=== PATIENT | female | born 1985 | race Two or more races ===

== ENCOUNTER 2017-11-02 08:24 | Outpatient (CLI) | payer OTHER ==
[~2017-11-02] VITALS: Ht 157.5 cm; Wt 60.8 kg
[~2017-11-02 08:24] MED LIST: ANTICONCEPTIVOS; OSEL75CA PO
== END 2017-11-02 08:45 | disposition home or self-care (01) ==
LOC: OFIC 805 08:24
DX: J30.89 Other allergic rhinitis (principal); R09.81 Nasal congestion

== ENCOUNTER 2018-08-20 09:24 | Outpatient (CLI) | payer OTHER ==
[~2018-08-20] VITALS: Ht 152.4 cm; Wt 63.5 kg
== END 2018-08-20 09:45 | disposition home or self-care (01) ==
LOC: OFIC 805 09:24
DX: J30.89 Other allergic rhinitis (principal); R09.81 Nasal congestion; R07.0 Pain in throat

== ENCOUNTER 2018-08-20 11:12 | Outpatient (CLI) | payer OTHER | END 2018-08-20 11:19 | disposition home or self-care (01) | LOC: LAB 11:12 | DX: J03.80 Acute tonsillitis due to other specified organisms (principal) ==

== ENCOUNTER 2018-10-04 09:51 | Outpatient (CLI) | payer OTHER ==
[~2018-10-04] VITALS: Ht 152.4 cm; Wt 63.5 kg
== END 2018-10-04 10:10 | disposition home or self-care (01) ==
LOC: OFIC 805 09:51
DX: J35.01 Chronic tonsillitis (principal)

== ENCOUNTER 2018-11-20 10:23 | Emergency (ER) | payer OTHER ==
[~2018-11-20] VITALS: Ht 157.5 cm; Wt 63.5 kg
== END 2018-11-20 14:38 | disposition home or self-care (01) ==
LOC: ER 10:23
DX: N39.0 Urinary tract infection, site not specified (principal); N30.90 Cystitis, unspecified without hematuria

== ENCOUNTER 2019-01-06 07:20 | Emergency (ER) | payer OTHER ==
[~2019-01-06] VITALS: Ht 157.5 cm; Wt 59.9 kg
== END 2019-01-06 17:35 | disposition home or self-care (01) ==
LOC: ER 07:20
DX: K52.9 Noninfective gastroenteritis and colitis, unspecified (principal)

== ENCOUNTER 2019-01-15 09:19 | Outpatient (CLI) | payer OTHER | END 2019-01-15 09:36 | disposition home or self-care (01) | LOC: RAD 09:19 | DX: J32.0 Chronic maxillary sinusitis (principal); J01.00 Acute maxillary sinusitis, unspecified; J45.902 Unspecified asthma with status asthmaticus; R05 Cough; R07.1 Chest pain on breathing; R51 Headache; R10.9 Unspecified abdominal pain; N94.89 Other specified conditions associated with female genital organs and menstrual cycle; R10.2 Pelvic and perineal pain ==

== ENCOUNTER 2019-01-29 08:08 | Outpatient (CLI) | payer OTHER | END 2019-01-29 08:53 | disposition home or self-care (01) | LOC: SONOGRAMA 08:08 → MAMO-SONO 08:15 → SONOGRAMA 08:53 | DX: J32.0 Chronic maxillary sinusitis (principal); J01.00 Acute maxillary sinusitis, unspecified; J45.902 Unspecified asthma with status asthmaticus; R05 Cough; R07.1 Chest pain on breathing; R51 Headache; R10.9 Unspecified abdominal pain; N94.89 Other specified conditions associated with female genital organs and menstrual cycle; R10.2 Pelvic and perineal pain ==

== ENCOUNTER 2019-07-09 12:00 | Outpatient (CLI) | payer OTHER | END 2019-07-09 13:01 | disposition home or self-care (01) | LOC: RAD 12:00 | DX: R10.2 Pelvic and perineal pain (principal); S16.1XXD Strain of muscle, fascia and tendon at neck level, subsequent encounter; M54.5 Low back pain; M54.6 Pain in thoracic spine ==

== ENCOUNTER 2023-05-21 15:38 | Inpatient (IN) | payer OTHER ==
[~2023-05-21] VITALS: Ht 157.5 cm; Wt 67.1 kg
[2023-05-22] MEDS ORDERED: AZELASTIN-FLUTI23 GM (14:54)
[2023-05-22] MEDS ORDERED: LO LOESTRIN FE1 EACH (14:54)
[2023-05-22] MEDS ORDERED: CETIRIZINE HCL10 MG (14:54)
== END 2023-05-24 17:55 | disposition home or self-care (01) | DRG 331 ==
LOC: ER 15:38 → SURH 19:50 → SEC-K 19:50 → SURG 19:54 → SEC-K 21:09 → SURH 05-22 09:54
PROVIDERS: General Practice; Surgery; ADMIT Specialist; ATTEND Specialist
PROC: 0DTJ4ZZ Resection of Appendix, Percutaneous Endoscopic Approach (ICD-10-PCS; 2023-05-22)
PROC: 0WQF4ZZ Repair Abdominal Wall, Percutaneous Endoscopic Approach (ICD-10-PCS; 2023-05-22)
PROC: 4A12X4Z Monitoring of Cardiac Electrical Activity, External Approach (ICD-10-PCS; 2023-05-22)
PROC: 0DBH4ZZ Excision of Cecum, Percutaneous Endoscopic Approach (ICD-10-PCS; principal; 2023-05-22 09:30)
DX: K35.80 Unspecified acute appendicitis (principal); K52.9 Noninfective gastroenteritis and colitis, unspecified; K43.9 Ventral hernia without obstruction or gangrene

== ENCOUNTER 2023-06-30 04:36 | Emergency (ER) | payer OTHER ==
[~2023-06-30] VITALS: Ht 160 cm; Wt 63.0 kg
[~2023-06-30 04:36] MED LIST changes: +AZELASTIN-FLUTI23 GM; +CETIRIZINE HCL10 MG; +LO LOESTRIN FE1 EACH
== END 2023-06-30 11:03 | disposition home or self-care (01) ==
LOC: ER 04:36
DX: R10.11 Right upper quadrant pain (principal); R10.12 Left upper quadrant pain

== ENCOUNTER 2025-10-04 12:33 | Outpatient (CLI) | payer OTHER | END 2025-10-04 12:34 | disposition home or self-care (01) | LOC: TOM 12:33 | PROVIDERS: ATTEND Otolaryngology Otology & Neurotology | DX: J31.0 Chronic rhinitis (principal) ==